=== PATIENT | male | born 1980 | race African-American/Black ===

== ENCOUNTER 2017-04-13 15:28 | Emergency (ER) | payer SELFPAY ==
[2017-04-13 15:40] VITALS: BP 142/86
--- NOTE | 2017-04-13 16:03 | RAD ---
CT head without contrast 04/13/2017 Clinical indication: Head injury. Comparison: None. Technique: Multiple CT images of the head were obtained without contrast according to standard protocol. PQRS Compliance Statement: One or more of the following individualized dose reduction techniques were utilized for this examination: 1. Automated exposure control 2. Adjustment of the mA and/or kV according to patient size 3. Use of iterative reconstruction technique Findings: No acute intracranial hemorrhage or extra-axial fluid collection. No midline shift. There is asymmetric low attenuation in the cortical and subcortical right occipital lobe measuring 3 cm series 2/image 13 with no associated mass effect. No midline shift. The basal cisterns are patent. The visualized mastoid air cells and paranasal sinuses are well aerated. Impression: 1. Asymmetric cortical/subcortical hypodensity in the right occipital lobe measuring 3 cm with no associated mass effect. Findings may be artifactual. Clinical correlation is recommended, and MRI could be obtained if clinically indicated. 2. No acute intracranial hemorrhage.
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
== END 2017-04-13 16:35 | disposition home or self-care (01) ==
LOC: ER 15:28
DX: S01.01XA Laceration without foreign body of scalp, initial encounter (principal); W22.8XXA Striking against or struck by other objects, initial encounter; Y93.89 Activity, other specified; Y99.8 Other external cause status; Y92.89 Other specified places as the place of occurrence of the external cause
CPT/HCPCS: 70450; 99284-25